=== PATIENT | female | born 1975 | race Caucasian/White ===

== ENCOUNTER 2020-04-12 18:46 | Emergency (ER) | payer OTHER ==
--- NOTE | 2020-04-12 19:04 | ERPHSYRPT ---
- History of Present Illness Time Seen by Provider: 04/12/20 18:55 Source: patient Exam Limitations: no limitations Patient Subjective Stated Complaint: pt to ER with complaints of L wrist/hand injury aprox 30 mins ago. pt fell off a swing and landed on her hand. pt states she has injured this hand before. Triage Nursing Assessment: pt A&Ox4. pt ambulatory. no obvious deformity. + swelling. tender to palpate. ice applied. Physician History: Patient is a 44-year-old female who presents to our ED with complaints of left wrist and hand pain. Patient was on a swing she jumped off fell forward onto her outstretched. Injury occurred prior to arrival. Pain described as an ache that is well localized. No radiation. Pain worse with movement and palpation. Pain improved with rest. No other injuries reported. Patient otherwise healthy. She voices no other complaints at this time. Occurred: just prior to arrival Method of Injury: fell Quality: constant Severity of Pain-Max: moderate (Patient declined pain medication.) Severity of Pain-Current: mild Extremities Pain Location: wrist: left, hand: left Modifying Factors: Improves With: movement Associated Symptoms: none Allergies/Adverse Reactions: morphine Allergy (Verified 04/12/20 18:57) Penicillins Allergy (Verified 04/12/20 18:57) Hx Tetanus, Diphtheria Vaccination/Date Given: Yes Hx Influenza Vaccination/Date Given: No Hx Pneumococcal Vaccination/Date Given: No Immunizations Up to Date: Yes Travel Risk - International Travel Have you traveled outside of the country in past 3 weeks: No - Coronavirus Screening Are you exhibiting any of the following symptoms?: No Close contact with a COVID-19 positive Pt in past 14-21 Days: No - Review of Systems Constitutional: No Symptoms, No Fever, No Chills Eyes: No Symptoms Ears, Nose, & Throat: No Symptoms Respiratory: No Symptoms, No Cough, No Dyspnea Cardiac: No Symptoms, No Chest Pain, No Edema, No Syncope Abdominal/Gastrointestinal: No Symptoms, No Abdominal Pain, No Nausea, No Vomiting, No Diarrhea Genitourinary Symptoms: No Symptoms, No Dysuria Musculoskeletal: No Symptoms, No Back Pain, No Neck Pain Skin: No Symptoms, No Rash Neurological: No Symptoms, No Dizziness, No Focal Weakness, No Sensory Changes Psychological: No Symptoms Endocrine: No Symptoms Hematologic/Lymphatic: No Symptoms Immunological/Allergic: No Symptoms All Other Systems: Reviewed and Negative - Past Medical History Pertinent Past Medical History: No - Past Surgical History Past Surgical History: Yes Gastrointestinal: Appendectomy, Cholecystectomy Musculoskeletal: Orthopedic Surgery Female Surgical History: Dilation & Curettage, Tubal Ligation - Social History Smoking Status: Never smoker Exposure to second hand smoke: No Drug Use: none Patient Lives Alone: No - Female History Hx Now: No - Nursing Vital Signs Nursing Vital Signs: Initial Vital Signs Temperature 98.0 F 04/12/20 18:51 Pulse Rate 89 04/12/20 18:51 Respiratory Rate 17 04/12/20 18:51 Blood Pressure 165/110 04/12/20 18:51 O2 Sat by Pulse Oximetry 97 04/12/20 18:51 Pain Scale Pain Intensity 7 - Physical Exam General Appearance: alert Eyes, Ears, Nose, Throat Exam: moist mucous membranes Neck Exam: non-tender, supple Cardiovascular/Respiratory Exam: chest non-tender, normal breath sounds, regular rate/rhythm, no respiratory distress Abdominal Exam: non-tender, No guarding Back Exam: normal inspection, No vertebral tenderness Shoulder Exam: normal inspection, non-tender, no evidence of injury Elbow/Forearm Exam: normal inspection, non-tender, no evidence of injury Wrist Exam: bone tenderness, pain, soft tissue tenderness (Tenderness to palpation in the anatomic snuffbox.) Hand Exam: bone tenderness, soft tissue tenderness, swelling Neuro/Tendon Exam: normal sensation, normal motor functions Mental Status Exam: alert, oriented x 3, cooperative Skin Exam: normal color, warm, dry SpO2 Interpretation: normal SpO2: 97 O2 Delivery: Room Air - Course Nursing assessment & vital signs reviewed: Yes - Radiology Exams Hand X-ray Interpretation: Interpreted by me (No fractures or dislocations.) Wrist X-ray Interpretation: Interpreted by me (No fractures or dislocations.) Ordered Tests: Active Orders 24 hr Category Date Time Status Cold Application STAT Care 04/12/20 18:52 Active HAND (MINIMUM 3 VIEWS) Stat Exams 04/12/20 18:56 Taken WRIST (MIN 3 VIEWS) Stat Exams 04/12/20 18:56 Taken - Progress Progress: improved Progress Note: 04/12/20 20:02 Patient reassessed. Per my read there are no fractures or dislocations. I explained to patient that sometimes an x-ray may appear negative however a fracture may present itself on a repeat x-ray 1 week later. In light of akbar squires's pain at the anatomic snuffbox suggesting injury to the scaphoid bone we immobilized patient in a thumb spica splint and advised her to follow-up with her primary care doctor as she will likely require a second x-ray to confirm no fracture. 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 Patient continues to decline pain medication. Patient neurovascularly intact post splint application. 04/12/20 20:03 04/12/20 20:06 Counseled pt/family regarding: diagnosis, rad results - Departure Departure Disposition: Home Clinical Impression: Fall, Wrist sprain, Hand sprain Condition: Stable Critical Care Time: No Referrals: SHARON BISWAS NP [NON-STAFF PHY W/O PRIVILEGES] - Additional Instructions: Discharge/Care Plan REBECCA MALHOTRA was seen on 04/12/20 in the Emergency Room. The patient was counseled regarding Diagnosis,Lab results, Imaging studies, need for follow up and when to return to the Emergency Room. Prescriptions given: Discharge Note I have spoken with the patient and/or caregivers. I have explained the patient's condition, diagnosis and treatment plan based on the information available to me at this time. I have answered the patient's and/or caregiver's questions and addressed any concerns. The patient and/or caregivers have as good understanding of the patient's diagnosis, condition and treatment plan as can be expected at this point. The vital signs have been stable. The patient's condition is stable and appropriate for discharge from the emergency department. The patient will pursue further outpatient evaluation with the primary care physician or other designated or consulting physician as outlined in the discharge instructions. The patient and/or caregivers are agreeable to this plan of care and follow-up instructions have been explained in detail. The patient and/or caregivers have received these instruction. The patient/and or caregivers are aware that any significant change in condition or worsening of symptoms should prompt an immediate return to this or the closest emergency department or call 911.
[2020-04-12 20:17] VITALS: BP 171/96; PULSE 84; O2SAT 96
--- NOTE | 2020-04-13 08:57 | XRAY ---
Indication: Pain following fall. Comparison: None 3 view left hand obtained. No bony, articular, or soft tissue abnormalities.
--- NOTE | 2020-04-13 08:57 | XRAY ---
Indication: Pain following fall. Comparison: None 3 view left wrist obtained. No bony, articular, or soft tissue abnormalities.
== END 2020-04-12 20:27 | disposition home or self-care (01) ==
LOC: ED 18:46
DX: S63.502A Unspecified sprain of left wrist, initial encounter (principal); S63.92XA Sprain of unspecified part of left wrist and hand, initial encounter; W09.1XXA Fall from playground swing, initial encounter; Y93.89 Activity, other specified
CPT/HCPCS: 73110; 73130; 99284